=== PATIENT | male | born 1995 | race American Indian/Alaskan Native ===

== ENCOUNTER 2018-05-28 21:18 | Emergency (ER) | payer OTHER ==
[2018-05-28 21:18] VITALS: BMI 28.6
== END 2018-05-28 21:31 | disposition left against medical advice (07) ==
LOC: ED 21:18
DX: Z02.89 Encounter for other administrative examinations (principal); R06.02 Shortness of breath

== ENCOUNTER 2018-05-28 21:35 | Emergency (ER) | payer OTHER ==
[2018-05-28 21:35] VITALS: BMI 28.6
[2018-05-28] MEDS ORDERED: Albuterol-Ipratrop 3 mg / 0.5 (3 ml) UD IH STA (22:39)
[2018-05-28 22:42] VITALS: TEMP 98.3; O2SAT 99
--- NOTE | 2018-05-28 22:46 | ED PDOC ---
Arrival/HPI - General Historian: Patient - History of Present Illness Narrative History of Present Illness (Text): Светлана Quesada is a 23 year old male who presents to the emergency department complaining of chest congestion and difficulty taking a deep breath for the past 2 days. Patient states he was recently sick 2 weeks prior with cold-like symptoms and thinks he may have had a fever at the time. Patient denies any fever currently, chills, chest pain, back pain, abdominal pain, diarrhea, recent travel, leg pain, leg swelling, or any other complaints. Symptom Onset: Gradual Symptom Course: Unchanged Activities at Onset: Light Context: Home <Mona Currie PA-C - Last Filed: 05/29/18 00:29> <Elier Sanders - Last Filed: 05/29/18 00:40> - General Chief Complaint: Cough, Cold, Congestion Time Seen by Provider: 05/28/18 21:42 Past Medical History - Provider Review Nursing Documentation Reviewed: Yes - Past History Past History: Unable to Obtain - Infectious Disease Hx of Infectious Diseases: None - Tetanus Immunization Tetanus Immunization: Unknown - Psychiatric Hx Depression: No Hx Emotional Abuse: No Hx Physical Abuse: No Hx Substance Use: No - Past Surgical History Past Surgical History: Unable to Obtain - Suicidal Assessment Feels Threatened In Home Enviroment: No <Mona Currie PA-C - Last Filed: 05/29/18 00:29> Family/Social History - Physician Review Nursing Documentation Reviewed: Yes Family/Social History: Unknown Family HX Smoking Status: Light Smoker < 10 Cigarettes Daily Hx Alcohol Use: Yes Frequency of alcohol use: Socially Hx Substance Use: No <Mona Currie PA-C - Last Filed: 05/29/18 00:29> Allergies/Home Meds <Mona Currie PA-C - Last Filed: 05/29/18 00:29> <Elier Sanders - Last Filed: 05/29/18 00:40> Allergies/Adverse Reactions: Allergies No Known Allergies Allergy (Verified 05/28/18 21:44) Review of Systems - Physician Review All systems were reviewed & negative as marked: Yes - Review of Systems ENT: Other (+chest congestion) Respiratory: Cough <Mona Currie PA-C - Last Filed: 05/29/18 00:29> Physical Exam Vital Signs Reviewed: Yes Vital Signs Pulse Resp BP Pulse Ox 05/28/18 21:52 18 134/77 05/28/18 21:40 113 H 16 144/67 96 Temperature: Afebrile Blood Pressure: Normal Pulse: Regular Respiratory Rate: Normal Appearance: Positive for: Well-Appearing, Non-Toxic, Comfortable Pain Distress: None Mental Status: Positive for: Alert and Oriented X 3 - Systems Exam Head: Present: Atraumatic, Normocephalic Pupils: Present: PERRL Extroacular Muscles: Present: EOMI Conjunctiva: Present: Normal Ears: Present: Normal, NORMAL TM, Normal Canal. No: Erythema, TM Bulging, Fl uid, TM Perf Mouth: Present: Moist Mucous Membranes Pharnyx: Present: Normal. No: ERYTHEMA, EXUDATE, TONSILS ENLARGED, Peritonsilar Swelling, Uvular Deviation, Muffled/Hoarse Voice, Strider, Soft Palate/Uvular Edema Nose (External): Present: Atraumatic Nose (Internal): Present: Normal Inspection Neck: Present: Normal Range of Motion Respiratory/Chest: Present: Clear to Auscultation, Good Air Exchange. No: Respiratory Distress, Accessory Muscle Use Cardiovascular: Present: Regular Rate and Rhythm, Normal S1, S2. No: Murmurs Abdomen: No: Tenderness, Distention, Peritoneal Signs Back: Present: Normal Inspection Upper Extremity: Present: Normal Inspection. No: Cyanosis, Edema Lower Extremity: Present: Normal Inspection. No: Edema Neurological: Present: GCS=15, CN II-XII Intact, Speech Normal Skin: Present: Warm, Dry, Normal Color. No: Rashes Psychiatric: Present: Alert, Oriented x 3, Normal Insight, Normal Concentration <Mona Currie PA-C - Last Filed: 05/29/18 00:29> Vital Signs Temp Pulse Resp BP Pulse Ox 05/28/18 22:40 98.3 F 62 18 99 05/28/18 21:52 18 134/77 05/28/18 21:40 113 H 16 144/67 96 <Elier Sanders - Last Filed: 05/29/18 00:40> Medical Decision Making ED Course and Treatment: Impression: 23 year old male complaining of chest congestion and difficulty taking a deep breath. Plan: -- CXR -- Albuterol -- Reassess and disposition Progress Notes: 05/29/18 00:00 VS T 98.3 P 62 R 18 O2 99%RA CXR : NAD, as read by PA On reevaluation, patient reports improvement of symptoms, denies any CP or SOB. On exam, patient remains awake alert and oriented 3 in no acute distress, speaking in full sentences. Lungs are clear to auscultation, cardiac regular rate and rhythm. Advised to follow up with referral physician in 1-2 days without fail. Advised to take medication as prescribed, advised on the benefits of smoking cessation. Return to the emergency room at any time for any new or worsening symptoms. Patient states he fully agrees with and understands discharge instructions. States that he agrees with the plan and disposition. Verbalized and repeated discharge instructions and plan. I have given the patient opportunity to ask any additional questions. - RAD Interpretation Radiology Orders: 05/28/18 22:41 CHEST ONE VIEW [RAD] Stat - Medication Orders Current Medication Orders: Albuterol/Ipratropium (Duoneb 3 Mg/0.5 Mg (3 Ml) Ud) 3 ml IH STAT STA Stop: 05/28/18 22:40 <Mona Currie PA-C - Last Filed: 05/29/18 00:29> - RAD Interpretation Radiology Orders: 05/28/18 22:41 CHEST ONE VIEW [RAD] Stat - Medication Orders Current Medication Orders: Discontinued Medications Albuterol/Ipratropium (Duoneb 3 Mg/0.5 Mg (3 Ml) Ud) 3 ml IH STAT STA Stop: 05/28/18 22:40 Last Admin: 05/28/18 23:43 Dose: 3 ml <Elier Sanders - Last Filed: 05/29/18 00:40> - PA / [employer] / Resident Statement MD/DO has reviewed & agrees with the documentation as recorded. - Scribe Statement The provider has reviewed the documentation as recorded by the Sesar Doshi Provider Scribe Attestation: All medical record entries made by the Scribe were at my direction and personally dictated by me. I have reviewed the chart and agree that the record accurately reflects my personal performance of the history, physical exam, medical decision making, and the department course for this patient. I have also personally directed, reviewed, and agree with the discharge instructions and disposition. <Mona Currie PA-C - Last Filed: 05/29/18 00:29> - PA / [employer] / Resident Statement MD/ has reviewed & agrees with the documentation as recorded. <Elier Sanders - Last Filed: 05/29/18 00:40> Disposition/Present on Arrival - Present on Arrival Any Indicators Present on Arrival: No History of DVT/PE: No History of Uncontrolled Diabetes: No Urinary Catheter: No History of Decub. Ulcer: No History Surgical Site Infection Following: None - Disposition Have Diagnosis and Disposition been Completed?: Yes Disposition Time: 00:15 Patient Plan: Discharge <Mona Currie PA-C - Last Filed: 05/29/18 00:29> <Elier Sanders - Last Filed: 05/29/18 00:40> - Disposition Diagnosis: Bronchitis Disposition: HOME/ ROUTINE Patient Problems: Current Active Problems Problem Status Onset Bronchitis Acute Condition: STABLE Discharge Instructions (ExitCare): Acute Bronchitis Additional Instructions: Thank you for letting us take care of you today. You were treated for acute bronchitis. The emergency medical care you received today was directed at your acute symptoms. If you were prescribed any medication, please fill it and take as directed. It may take several days for your symptoms to resolve. Return to [facility] Emergency Department if your symptoms worsen, do not improve, or if you have any other problems. Please contact your doctor in 2 days for re-evaluation and follow up / or call one of the physicians/clinics you have been referred to that are listed on the Patient Visit Information form that is included in your discharge packet. Bring any paperwork you were given at discharge with you along with any medications you are taking to your follow up visit. Our treatment cannot replace ongoing medical care by a primary care provider (PCP) outside of the emergency department. Thank you for allowing the [facility] team to be part of your care today. If you had an X-Ray: A Radiologist will review the ED reading if any change in treatment is needed we will contact you. Prescriptions: Albuterol 0.083% [Albuterol Sulfate 3 Ml] 3 ml IH Q4 #100 neb Nebulizer [Aeroeclipse II] 1 each MC DAILY #1 each Referrals: PCP,NO [Primary Care Provider] - Follow up with primary Edward Mckeon MD [Staff Provider] - Follow up with primary Forms: [employer] [facility] ([place]rian), WORK NOTE, SCHOOL NOTE
[2018-05-29 00:46] VITALS: BP 154/73; PULSE 89; RESP 20
--- NOTE | 2018-05-29 09:13 | RAD ---
Date of service: 05/28/2018 PROCEDURE: CHEST RADIOGRAPH, 1 VIEW HISTORY: congestion COMPARISON: 10/13/2012 FINDINGS: LUNGS: Clear. PLEURA: No pneumothorax or pleural fluid seen. CARDIOVASCULAR: No aortic atherosclerotic calcification present. Normal. OSSEOUS STRUCTURES: No significant abnormalities. VISUALIZED UPPER ABDOMEN: Normal. OTHER FINDINGS: None. IMPRESSION: No active disease.
== END 2018-05-29 00:44 | disposition home or self-care (01) ==
LOC: ED 21:35
DX: J40 Bronchitis, not specified as acute or chronic (principal); F17.210 Nicotine dependence, cigarettes, uncomplicated